=== PATIENT | male | born 1990 | race Caucasian/White ===

== ENCOUNTER 2017-10-01 22:50 | Emergency (ER) | payer OTHER ==
[~2017-10-01] VITALS: Ht 180.3 cm; Wt 72.6 kg
[2017-10-01] MEDS ORDERED: chlorproMAZINE 50 MG/2 ML AMPUL IM ONE (23:15)
[2017-10-01] MEDS ORDERED: LORAZEPAM 0.5 MG TABLET PO ONE (23:15)
[2017-10-01] MEDS ORDERED: chlorproMAZINE 50 MG/2 ML AMPUL ONE (23:20)
[2017-10-01] MEDS ORDERED: LORAZEPAM 1 MG TABLET ONE (23:21)
[2017-10-02] MEDS ORDERED: chlorproMAZINE 50 MG/2 ML AMPUL IM ONE
[2017-10-02] MEDS ORDERED: LORAZEPAM 0.5 MG TABLET PO ONE
[2017-10-02] MEDS ORDERED: chlorproMAZINE 50 MG/2 ML AMPUL ONE (00:05)
[2017-10-02] MEDS ORDERED: LORAZEPAM 1 MG TABLET ONE (00:05)
--- NOTE | 2017-10-02 00:06 | NUR ---
Patient remains with hiccups at this time. Medicated with additional dose of thorazine/ativan at this time. Awaiting results. patient in bed, no acute distress noted. vss
--- NOTE | 2017-10-02 00:13 | NUR ---
Patient discharged to home in stable conditon. Written and verbal after care instructions given. Patient verbalizes understanding of instructions. Ambulated from ER with stable gait. All belongings with patient. patient will be driven home by his friend in a private vehicle. VSS.
[2017-10-02 00:15] VITALS: BP 118/78
== END 2017-10-02 00:15 | disposition home or self-care (01) ==
LOC: ER 22:52
DX: R06.6 Hiccough (principal); F41.8 Other specified anxiety disorders; F17.200 Nicotine dependence, unspecified, uncomplicated; F11.10 Opioid abuse, uncomplicated
CPT/HCPCS: 96372 ×2; 99284; A4663; J3230 ×2

== ENCOUNTER 2017-10-09 20:07 | Emergency (ER) | payer OTHER ==
[~2017-10-09] VITALS: Ht 180.3 cm; Wt 72.6 kg
[2017-10-09 20:36] LABS: BASOPHILS % (AUTO) 0.3 % (0.0-2.0); EOSINOPHILS # (AUTO) 0.3 K/uL (0.0-0.7); EOSINOPHILS % (AUTO) 3.9 % (0.0-7.0); HEMATOCRIT 39.6 % (36.7-47.1); HEMOGLOBIN 13.1 g/dL (12.5-16.3); LYMPHOCYTES # (AUTO) 2.6 K/uL (20.0-40.0); LYMPHOCYTES % (AUTO) 34.3 % (20.5-51.5); MEAN CORPUSCULAR HEMOGLOBIN 26.7 uug (23.8-33.4); MEAN CORPUSCULAR HGB CONC 33 g/dL (32.5-36.3); MEAN CORPUSCULAR VOLUME 80.5 fL (73.0-96.2); MONOCYTES # (AUTO) 0.5 K/uL (2.0-10.0); MONOCYTES % (AUTO) 6.3 % (0.0-11.0); NEUTROPHILS # (AUTO) 4.2 K/uL (1.8-8.9); NEUTROPHILS % (AUTO) 55.2 % (38.5-71.5); PLATELET COUNT (AUTO) 245 K/uL (152-348); RED BLOOD CELL COUNT(AUTO) 4.92 MIL/uL (4.06-5.63); WHITE BLOOD COUNT (AUTO) 7.6 K/uL (3.6-10.2)
[2017-10-09 20:37] LABS: POTASSIUM 4.5 mmol/L (3.5-5.1)
[2017-10-09 20:53] LABS: BILIRUBIN,DIRECT 0.1 mg/dL (0.0-0.2); BILIRUBIN,TOTAL 0.2 mg/dL (0.2-1.0); TOTAL PROTEIN, SERUM 7.6 g/dL (6.4-8.2)
== END 2017-10-09 21:44 | disposition home or self-care (01) ==
LOC: ER 20:09
DX: R07.89 Other chest pain (principal); F17.200 Nicotine dependence, unspecified, uncomplicated; F11.10 Opioid abuse, uncomplicated; F15.10 Other stimulant abuse, uncomplicated
CPT/HCPCS: 36415; 71045; 80048; 80076; 83880; 84484; 85025; 85379; 85730; 93005; 99285; A4663; 70030-TC

== ENCOUNTER 2020-06-25 05:10 | Emergency (ER) | payer SELFPAY ==
[~2020-06-25] VITALS: Ht 180.3 cm; Wt 68.0 kg
--- NOTE | 2020-06-25 05:27 | NUR ---
Dr. Johnson at bedside for MSE.
[2020-06-25 05:36] LABS: BASOPHILS % (AUTO) 0.4 % (0.0-2.0); EOSINOPHILS # (AUTO) 0.3 K/uL (0.0-0.7); EOSINOPHILS % (AUTO) 3.5 % (0.0-7.0); HEMATOCRIT 31.4 % (36.7-47.1); HEMOGLOBIN 10.6 g/dL (12.5-16.3); LYMPHOCYTES # (AUTO) 1.2 K/uL (20.0-40.0); LYMPHOCYTES % (AUTO) 15.4 % (20.5-51.5); MEAN CORPUSCULAR HEMOGLOBIN 26.2 uug (23.8-33.4); MEAN CORPUSCULAR HGB CONC 34 g/dL (32.5-36.3); MEAN CORPUSCULAR VOLUME 77.6 fL (73.0-96.2); MONOCYTES # (AUTO) 0.8 K/uL (2.0-10.0); MONOCYTES % (AUTO) 10.2 % (0.0-11.0); NEUTROPHILS # (AUTO) 5.4 K/uL (1.8-8.9); NEUTROPHILS % (AUTO) 70.5 % (38.5-71.5); PLATELET COUNT (AUTO) 305 K/uL (152-348); RED BLOOD CELL COUNT(AUTO) 4.04 MIL/uL (4.06-5.63); WHITE BLOOD COUNT (AUTO) 7.7 K/uL (3.6-10.2)
--- NOTE | 2020-06-25 05:37 | NUR ---
Xray at bedside.
[2020-06-25 05:43] LABS: CREATININE 0.8 mg/dL (0.6-1.3); POTASSIUM 3.4 mmol/L (3.5-5.1)
[2020-06-25 05:54] LABS: BILIRUBIN,DIRECT 0.1 mg/dL (0.0-0.2); BILIRUBIN,TOTAL 0.4 mg/dL (0.2-1.0); TOTAL PROTEIN, SERUM 7.3 g/dL (6.4-8.2)
[2020-06-25] MEDS ORDERED: KETOROLAC TROMETHAMINE 15 MG INJ ONE (05:58)
[2020-06-25] MEDS ORDERED: ACET-2154 PO (05:58)
[2020-06-25] MEDS ORDERED: BENZ-13 PO (05:58)
[2020-06-25] MEDS ORDERED: AZIT250T13 PO (05:58)
[2020-06-25] MEDS ORDERED: KETOROLAC TROMETHAMINE 15 MG INJ IVP ONE (06:00)
[2020-06-25] MEDS ORDERED: AMOX500T2 PO (06:15)
[2020-06-25 06:51] VITALS: BP 129/78
--- NOTE | 2020-06-25 06:51 | NUR ---
Patient discharged to home in stable condition. Written and verbal after care instructions given. Patient verbalizes understanding of instructions. Stressed follow up or return to ER for worsening s/s. Patient out of ER with steady gait, no acute signs of distress, VSS, all belongings taken, provided copies of lab results, IV site discontinued.
== END 2020-06-25 06:52 | disposition home or self-care (01) ==
LOC: ER 05:15
DX: J40 Bronchitis, not specified as acute or chronic (principal); R07.9 Chest pain, unspecified; Z20.822 Contact with and (suspected) exposure to COVID-19; R91.8 Other nonspecific abnormal finding of lung field
CPT/HCPCS: 36415; 71045; 80048; 80076; 84484; 85025; 85730; 87426; 93005; 96374; 99285; J1885; 70030-TC; A4663

== ENCOUNTER 2020-07-24 07:24 | Emergency (ER) | payer OTHER ==
[~2020-07-24] VITALS: Ht 180.3 cm; Wt 68.0 kg
[~2020-07-24 07:24] MED LIST: ACET-2154 PO; AMOX500T2 PO; AZIT250T13 PO; BENZ-13 PO
--- NOTE | 2020-07-24 07:44 | NUR ---
Dr Hale at the bedside for MSE.
[2020-07-24] MEDS ORDERED: KETOROLAC TROMETHAMINE 30 MG INJ ONE (08:11)
[2020-07-24] MEDS ORDERED: NEOMY/BACITRA/POLYMYXIN B OINT UD PACKET TP ONE (08:11)
[2020-07-24] MEDS ORDERED: VANCOMYCIN IV 200 ML ONE (08:12)
[2020-07-24] MEDS ORDERED: CEFTRIAXONE /D5W 50ML IVPB **ER PYXIS IV ONE (08:12)
[2020-07-24] MEDS: KETOROLAC TROMETHAMINE 30 MG INJ IVP ONE (08:15)
[2020-07-24] MEDS: CEFTRIAXONE 1 G in IV DEXTROSE 5% 50 ML IV ONE (08:22)
[2020-07-24] MEDS: NEOMY/BACITRA/POLYMYXIN B OINT UD PACKET TP ONE (08:25)
[2020-07-24] MEDS: VANCOMYCIN IV 1,000 MG in IV DEXTROSE 5% 250 ML IV ONE (08:49)
--- NOTE | 2020-07-24 09:43 | NUR ---
Patient is resting comfortably in bed with eyes closed, NAD noted.
[2020-07-24] MEDS ORDERED: CEPH500C2 PO (10:28)
[2020-07-24] MEDS ORDERED: SULF1TAB48 PO (10:28)
[2020-07-24] MEDS ORDERED: IBUP-1955 PO (10:28)
[2020-07-24] MEDS ORDERED: MUPI22OI2 TP (10:28)
--- NOTE | 2020-07-24 10:40 | NUR ---
IV removed. Catheter intact and site benign. Pressure and 4x4 gauze applied to site. No bleeding noted.
[2020-07-24 10:41] VITALS: BP 115/66
--- NOTE | 2020-07-24 10:41 | NUR ---
Patient discharged to home in stable condition. Written and verbal after care instructions given. Patient verbalizes understanding of instructions. Stressed follow up or return to ER for worsening s/s.
== END 2020-07-24 10:41 | disposition home or self-care (01) ==
LOC: ER 07:24
DX: S91.001A Unspecified open wound, right ankle, initial encounter (principal); L03.115 Cellulitis of right lower limb; X58.XXXA Exposure to other specified factors, initial encounter; Y92.89 Other specified places as the place of occurrence of the external cause; F41.0 Panic disorder [episodic paroxysmal anxiety]
CPT/HCPCS: 73630; 96365; 96366; 96367; 96375; 99284; J0696; J1885; J3370; A4217; A4663

== ENCOUNTER 2021-07-31 10:18 | Emergency (ER) | payer OTHER ==
[~2021-07-31] VITALS: Ht 180.3 cm; Wt 63.5 kg
[~2021-07-31 10:18] MED LIST changes: +CEPH500C2 PO; +IBUP-1955 PO; +MUPI22OI2 TP; +SULF1TAB48 PO
--- NOTE | 2021-07-31 10:54 | NUR ---
PT IS IN ROOM #1B. DR JORDAN EVALUATED THE PT.
[2021-07-31] MEDS ORDERED: FAMOTIDINE. 20 MG/2 ML VIAL IV ONE ×2 (11:15→11:32)
[2021-07-31] MEDS ORDERED: ONDANSETRON 4 MG/2 ML VIAL IV ONE (11:15)
[2021-07-31] MEDS ORDERED: MAG HYDROX/AL HYDROX/SIMETH 30 ML LIQUID UDC PO ONE (11:15)
[2021-07-31] MEDS ORDERED: LIDOCAINE VISCUS 2% 15 ML UDC MM ONE (11:15)
[2021-07-31] MEDS ORDERED: IV NORMAL SALINE 1000 ML BAG IV ONE (11:15)
[2021-07-31] MEDS ORDERED: ONDANSETRON 4 MG/2 ML VIAL ONE (11:32)
[2021-07-31] MEDS ORDERED: LIDOCAINE VISCUS 2% 15 ML UDC ONE (11:33)
[2021-07-31] MEDS ORDERED: MAG HYDROX/AL HYDROX/SIMETH 30 ML LIQUID UDC ONE (11:33)
[2021-07-31 12:30] LABS: HEMATOCRIT 39.5 % (36.7-47.1); MEAN CORPUSCULAR HEMOGLOBIN 26.7 uug (23.8-33.4); MEAN CORPUSCULAR VOLUME 78.2 fL (73.0-96.2); PLATELET COUNT (AUTO) 237 K/uL (152-348)
[2021-07-31 12:51] LABS: CREATININE 0.8 mg/dL (0.6-1.3); POTASSIUM 4.1 mmol/L (3.5-5.1)
[2021-07-31 12:58] LABS: BILIRUBIN,DIRECT 0.1 mg/dL (0.0-0.2); BILIRUBIN,TOTAL 0.5 mg/dL (0.2-1.0); TOTAL PROTEIN, SERUM 7.7 g/dL (6.4-8.2)
[2021-07-31 13:44] LABS: *BILIRUBIN,URIN NEGATIVE (NEGATIVE); *BLOOD, URINE NEGATIVE (NEGATIVE); *CLARITY,URINE CLEAR (CLEAR); *COLOR,URINE YELLOW (YELLOW); *KETONES,URINE NEGATIVE (NEGATIVE); *UROBILINOGEN,URINE 0.2 E.U./dl (NORMAL); LEUKOCYTE ESTERASE ,URINE TRACE (NEGATIVE); NITRITE, URINE NEGATIVE (NEGATIVE); PH,URINE 5.5 (5.0-8.0); UGLUCOSE NEGATIVE (NEGATIVE)
[2021-07-31] MEDS ORDERED: CLONAZEPAM 0.5 MG TABLET PO ONE (14:15)
[2021-07-31] MEDS ORDERED: ONDA4TAB5 PO (14:19)
[2021-07-31] MEDS ORDERED: FAMO-132 PO (14:19)
[2021-07-31] MEDS ORDERED: CEPH500T PO (14:20)
[2021-07-31 14:24] LABS: BACTERIA,URINE FEW /HPF (NONE SEEN); RBC,URINE 0-3 /HPF (0-3); SQUAMOUS EPITHELIAL CELL,UR FEW /HPF (NONE SEEN)
[2021-07-31] MEDS ORDERED: CLONAZEPAM 1 MG TABLET ONE (14:26)
--- NOTE | 2021-07-31 14:33 | NUR ---
PT WAS D/C'd TO HOME. D/C INSTRUCTIONS GIVEN TO THE PT BY DR JORDAN.
[2021-07-31 14:35] VITALS: BP 132/69
== END 2021-07-31 15:04 | disposition home or self-care (01) ==
LOC: ER 10:18
DX: R10.9 Unspecified abdominal pain (principal); N39.0 Urinary tract infection, site not specified; F41.9 Anxiety disorder, unspecified; F19.10 Other psychoactive substance abuse, uncomplicated
CPT/HCPCS: 36415; 80048; 80076; 81001; 83690; 85025; 87086; 96361; 96374; 96375; 99284; J2405; J3490; J7040; A4663

== ENCOUNTER 2021-12-13 09:13 | Emergency (ER) | payer OTHER ==
[~2021-12-13] VITALS: Ht 180.3 cm; Wt 65.8 kg
[~2021-12-13 09:13] MED LIST changes: +CEPH500T PO; +FAMO-132 PO; +ONDA4TAB5 PO
[2021-12-13] MEDS ORDERED: ACETAMINOPHEN ES 500 MG TABLET PO ONE (09:30)
[2021-12-13] MEDS ORDERED: LORAZEPAM 0.5 MG TABLET PO ONE (09:30)
[2021-12-13] MEDS ORDERED: ACETAMINOPHEN ES 500 MG TABLET ONE (09:31)
[2021-12-13] MEDS ORDERED: LORAZEPAM 0.5 MG TABLET ONE (09:31)
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
--- NOTE | 2021-12-13 09:48 | NUR ---
Transported to radiology for Hea CT scan w/o contrst by tech at 0946.
[2021-12-13 09:52] LABS: HEMATOCRIT 35.1 % (36.7-47.1); MEAN CORPUSCULAR HEMOGLOBIN 26.4 uug (23.8-33.4); MEAN CORPUSCULAR VOLUME 78.4 fL (73.0-96.2); PLATELET COUNT (AUTO) 223 K/uL (152-348)
[2021-12-13 10:21] LABS: CREATININE 0.8 mg/dL (0.6-1.3); POTASSIUM 3.7 mmol/L (3.5-5.1)
[2021-12-13 10:27] LABS: BILIRUBIN,DIRECT 0.2 mg/dL (0.0-0.2); BILIRUBIN,TOTAL 0.6 mg/dL (0.2-1.0); TOTAL PROTEIN, SERUM 7.5 g/dL (6.4-8.2)
[2021-12-13] MEDS ORDERED: AZITHROMYCIN 250 MG TABLET PO ONE (11:45)
[2021-12-13] MEDS ORDERED: AZITHROMYCIN 250 MG TABLET ONE (11:55)
--- NOTE | 2021-12-13 12:00 | NUR ---
Pt received Zithromax 500mg po as per ERMD's order, well tolerated, explained about side-effects and pt verbalized understanding.
[2021-12-13] MEDS ORDERED: AZIT250T13 PO (12:07)
--- NOTE | 2021-12-13 12:15 | NUR ---
Pt discharged to home in stable condition. Written and verbal after care instructions given. Pt verbalizes understanding of instructions. Stressed follow up or return to ER for worsening s/s.
[2021-12-13 12:17] VITALS: BP 132/84
[2021-12-14] MEDS ORDERED: MULT-594 PO (13:24)
[2021-12-14] MEDS ORDERED: PREG150C PO (13:24)
[2021-12-14] MEDS ORDERED: QUET100T PO (13:24)
[2021-12-16] MEDS ORDERED: AMOX-430 PO (12:31)
[2021-12-16] MEDS ORDERED: IBUP-1955 PO (12:31)
[2021-12-16] MEDS ORDERED: LORA0.5T48 PO (12:31)
== END 2021-12-13 12:15 | disposition home or self-care (01) ==
LOC: ER 09:13
DX: S09.90XA Unspecified injury of head, initial encounter (principal); Y08.02XA Assault by strike by baseball bat, initial encounter; Y92.89 Other specified places as the place of occurrence of the external cause; J18.9 Pneumonia, unspecified organism; R07.89 Other chest pain; Z28.310 Unvaccinated for COVID-19; F41.9 Anxiety disorder, unspecified
CPT/HCPCS: 36415; 70450; 71045; 85025; A4663; A9150; Q0144

== ENCOUNTER 2021-12-13 19:21 | Inpatient (IN) | payer OTHER ==
[~2021-12-13] VITALS: Ht 180.3 cm; Wt 63.5 kg
--- NOTE | 2021-12-13 19:28 | NUR ---
Patient walked to ER with steady gait, NAD noted
--- NOTE | 2021-12-13 19:50 | NUR ---
Dr Delgado at bedside MSE in progress
[2021-12-13 20:32] LABS: HEMATOCRIT 35.7 % (36.7-47.1); MEAN CORPUSCULAR HEMOGLOBIN 26.2 uug (23.8-33.4); PLATELET COUNT (AUTO) 244 K/uL (152-348)
[2021-12-13] MEDS ORDERED: CHLORDIAZEPOXIDE HCL 25 MG CAPSULE ONE (20:37)
[2021-12-13] MEDS ORDERED: KETOROLAC TROMETHAMINE 60 MG INJ IM ONE ×2 (20:37→20:45)
[2021-12-13 20:38] LABS: BILIRUBIN,DIRECT 0.1 mg/dL (0.0-0.2); BILIRUBIN,TOTAL 0.5 mg/dL (0.2-1.0); CREATININE 0.8 mg/dL (0.6-1.3); POTASSIUM 3.6 mmol/L (3.5-5.1); TOTAL PROTEIN, SERUM 7.7 g/dL (6.4-8.2)
[2021-12-13] MEDS ORDERED: CHLORDIAZEPOXIDE HCL 25 MG CAPSULE PO ONE (20:45)
[2021-12-13] MEDS ORDERED: CEFTRIAXONE 1 G in IV DEXTROSE 5% 50 ML IV ONE (22:45)
[2021-12-13] MEDS ORDERED: CEFTRIAXONE /D5W 50ML IVPB **ER PYXIS IV ONE (22:47)
[2021-12-13] MEDS ORDERED: OXYCODONE/APAP 5-325 MG TABLET ONE (23:15)
[2021-12-13] MEDS ORDERED: OXYCODONE/APAP 5-325 MG TABLET PO ONE (23:15)
--- NOTE | 2021-12-13 23:20 | NUR ---
patient has been accepted by Dr Valdes
--- NOTE | 2021-12-13 23:26 | NUR ---
called Divider Operator Teresita PACHECO for bed. Will call me back
[2021-12-13] MEDS ORDERED: ONDANSETRON 4 MG/2 ML VIAL IV PRN (23:30)
[2021-12-13] MEDS ORDERED: hydrALAZINE HCL 20 MG/1 ML VIAL IV PRN (23:30)
--- NOTE | 2021-12-13 23:45 | NUR ---
Report given to Isis PACHECO
--- NOTE | 2021-12-14 | NUR ---
3rd floor called, patient going to room 305 now.
[2021-12-14] MEDS ORDERED: ALBUTEROL SULFATE 2.5 MG/3 ML NEBU NEB PRN (00:30)
[2021-12-14 00:35] VITALS: BP 120/76
--- NOTE | 2021-12-14 00:38 | NUR ---
Pt. admitted to M/S room 305 , under care of Dr. Valdes Belongs List completed Isis RN aware of patient's arrival
[2021-12-14] MEDS ORDERED: CEFEPIME HCL 1 G VIAL ONE (03:44)
[2021-12-14 04:00] VITALS: BP 118/68
[2021-12-14] MEDS ORDERED: CEFEPIME HCL 1 G in IV DEXTROSE 5% 50 ML IV SCH (06:00)
[2021-12-14 07:10] LABS: HEMATOCRIT 36.6 % (36.7-47.1); MEAN CORPUSCULAR HEMOGLOBIN 26.2 uug (23.8-33.4); MEAN CORPUSCULAR VOLUME 77.8 fL (73.0-96.2); PLATELET COUNT (AUTO) 235 K/uL (152-348)
[2021-12-14 07:28] LABS: BILIRUBIN,TOTAL 0.5 mg/dL (0.2-1.0); CREATININE 1.1 mg/dL (0.6-1.3); PHOSPHOROUS 3.1 mg/dL (2.5-4.9); POTASSIUM 3.4 mmol/L (3.5-5.1); TOTAL PROTEIN, SERUM 7.4 g/dL (6.4-8.2)
[2021-12-14 07:42] VITALS: BP 115/70
[2021-12-14] MEDS: HEPARIN SODIUM,PORCINE 5,000 UNITS/ML VIAL SQ SCH ×2 (08:24→20:46)
[2021-12-14] MEDS: LORAZEPAM 1 MG TABLET PO PRN ×2 (08:29→17:08)
--- NOTE | 2021-12-14 09:19 | NUR ---
Social work consult was requested for a patient on [facility] for homeless resources and substance abuse resources. Patient is 31-year-old male admitted to the hospital for pneumonia. Patient is alert and oriented X4. Patient presents with anxious mood and congruent affect. Patient states his primary labor relations or personnel negotiator is his mother, Ángel Shanks ([phone]). Patient states that he has been homeless for a few weeks and requests a TAP card at discharge. SW offered the patient resources for local shelters for [facility] [address] [place] [address] ([phone]), [facility] [address] [place] [address] ([phone]) and [address] [address]. Homeless waiver was signed and was placed in the chart. Patient was appreciative of the resources. Patient states that he has a history of drug abuse and the last time he used drugs was a week ago. Patient refused to state what drugs he was using. Per MD consult the patient has a prescription for opiates and benzodiazepines, and he is having withdrawal from both of those medicines. There is no toxicology report. Patient states he is interested in medication assisted treatment and SW provided the patient with resources to [facility] [address] [facility] [address] ([phone]), [facility] [address] [facility] [address] ([phone]), and [facility] [address] [place] [address] ([phone]). Patient appeared ambivalent about treatment and SW will continue to follow up. SW placed the resources in the patients chart. Patient denies a history of psychiatric diagnosis. Patient denies suicidal or homicidal ideation. Patients plan for discharge is follow up with the resources provided and SW will provide the patient with a TAP card at discharge.
[2021-12-14] MEDS ORDERED: POTASSIUM CHLORIDE 20 MEQ TAB.PRT.SR PO ONE (09:30)
[2021-12-14] MEDS ORDERED: QUET100T PO (13:24)
[2021-12-14] MEDS ORDERED: MULT-594 PO (13:24)
[2021-12-14] MEDS ORDERED: PREG150C PO (13:24)
[2021-12-14] MEDS: ACETAMINOPHEN 325 MG TABLET PO PRN (13:34)
[2021-12-14] MEDS: CEFEPIME HCL 2 G in IV DEXTROSE 5% 100 ML IV SCH ×2 (14:37→21:51)
[2021-12-14 15:10] VITALS: BP 101/60
[2021-12-14] MEDS: PREGABALIN 50 MG CAPSULE PO SCH (17:08)
[2021-12-14] MEDS: MORPHINE SULFATE 2 MG/1 ML DISP.SYRIN IV PRN ×2 (17:19→21:24)
[2021-12-14 20:00] VITALS: BP 119/69
[2021-12-14] MEDS: QUETIAPINE FUMARATE 100 MG TABLET PO SCH (20:44)
[2021-12-15] MEDS: LORAZEPAM 1 MG TABLET PO PRN ×3 (02:12→17:45)
[2021-12-15 04:00] VITALS: BP 116/71
[2021-12-15 06:07] LABS: HEMATOCRIT 36.2 % (36.7-47.1); MEAN CORPUSCULAR HEMOGLOBIN 26.5 uug (23.8-33.4); PLATELET COUNT (AUTO) 264 K/uL (152-348)
[2021-12-15] MEDS: MORPHINE SULFATE 2 MG/1 ML DISP.SYRIN IV PRN ×3 (06:13→20:51)
[2021-12-15] MEDS: CEFEPIME HCL 2 G in IV DEXTROSE 5% 100 ML IV SCH ×3 (06:13→22:24)
[2021-12-15 07:09] LABS: PHOSPHOROUS 4.4 mg/dL (2.5-4.9); POTASSIUM 3.5 mmol/L (3.5-5.1)
[2021-12-15 08:30] VITALS: BP 100/72
[2021-12-15] MEDS: PREGABALIN 50 MG CAPSULE PO SCH ×3 (09:35→17:45)
[2021-12-15] MEDS: MULTIVITAMINS,THERAPEUTIC TABLET PO SCH (09:36)
[2021-12-15] MEDS: HEPARIN SODIUM,PORCINE 5,000 UNITS/ML VIAL SQ SCH ×2 (09:37→20:38)
--- NOTE | 2021-12-15 09:55 | NUR ---
Pt is a/o x 4 with complaints of generalized pain, vitals stable, educated on PRN schedule. No signs of acute distress, comfort measures provided, call light within reach. Pt was cooperative with care and took scheduled medications as prescribed. PRN ativan administered due to report of anxiety. Will continue to monitor.
[2021-12-15 11:07] VITALS: BP 118/70
[2021-12-15 15:03] VITALS: BP 100/57
[2021-12-15] MEDS: ACETAMINOPHEN 325 MG TABLET PO PRN (17:51)
--- NOTE | 2021-12-15 18:00 | NUR ---
Pt reported having SOB, checked vitals SpO2 96% on room air. PRN medications given at ordered appropriate times, decreased stimuli in room to help decrease pt's anxiety, educated on calming techniques. Pt reported feeling a little bit better, tylenol and ativan given due to anxiety and temp of 99.2. Comfort measures provided, call light within reach, will endorse to night baker.
[2021-12-15] MEDS: QUETIAPINE FUMARATE 100 MG TABLET PO SCH (20:40)
[2021-12-16 04:00] VITALS: BP 100/67
[2021-12-16] MEDS: MORPHINE SULFATE 2 MG/1 ML DISP.SYRIN IV PRN ×2 (05:48→11:30)
[2021-12-16] MEDS: CEFEPIME HCL 2 G in IV DEXTROSE 5% 100 ML IV SCH ×2 (05:52→13:13)
[2021-12-16 06:52] LABS: HEMATOCRIT 37.6 % (36.7-47.1); MEAN CORPUSCULAR VOLUME 78.5 fL (73.0-96.2); PLATELET COUNT (AUTO) 264 K/uL (152-348)
[2021-12-16 07:05] LABS: CREATININE 0.9 mg/dL (0.6-1.3); MAGNESIUM 1.9 mg/dL (1.8-2.4); PHOSPHOROUS 4.9 mg/dL (2.5-4.9); POTASSIUM 3.6 mmol/L (3.5-5.1)
[2021-12-16] MEDS: MULTIVITAMINS,THERAPEUTIC TABLET PO SCH (08:00)
[2021-12-16] MEDS: PREGABALIN 50 MG CAPSULE PO SCH ×2 (08:00→13:03)
[2021-12-16] MEDS: HEPARIN SODIUM,PORCINE 5,000 UNITS/ML VIAL SQ SCH (08:01)
[2021-12-16] MEDS: LORAZEPAM 1 MG TABLET PO PRN (10:10)
[2021-12-16 11:54] VITALS: BP 102/66
[2021-12-16] MEDS ORDERED: IBUP-1955 PO (12:31)
[2021-12-16] MEDS ORDERED: LORA0.5T48 PO (12:31)
[2021-12-16] MEDS ORDERED: AMOX-430 PO (12:31)
--- NOTE | 2021-12-16 14:43 | NUR ---
dc orders received noted and carried out,dc heplock per md orders,dc instruction and education given to the pt.pt left the facility via private car in stable condition
== END 2021-12-16 14:30 | disposition home or self-care (01) | DRG 194 ==
LOC: ER 19:21 → MEDSURG3 23:20
PROVIDERS: ADMIT Nurse Practitioner Acute Care; ATTEND Nurse Practitioner Acute Care
DX: J15.9 Unspecified bacterial pneumonia (principal); F13.20 Sedative, hypnotic or anxiolytic dependence, uncomplicated; Z59.00 Homelessness unspecified; Z20.822 Contact with and (suspected) exposure to COVID-19; R74.01 Elevation of levels of liver transaminase levels; E87.6 Hypokalemia; Z87.01 Personal history of pneumonia (recurrent); F41.9 Anxiety disorder, unspecified; F41.0 Panic disorder [episodic paroxysmal anxiety]; D72.828 Other elevated white blood cell count; Y04.0XXA Assault by unarmed brawl or fight, initial encounter; Y92.89 Other specified places as the place of occurrence of the external cause
CPT/HCPCS: 36415; 71045; 83735; 84100; 85025; 85651; 86592; 87536; A4663; G0378; J0692; J0696; J1644; J1885; J2270